=== PATIENT | male | born 1945 | race Caucasian/White ===

== ENCOUNTER 2017-06-07 05:29 | Day surgery (SDC) | payer MEDICARE ==
[2017-05-31 10:28] LABS: ABSOLUTE EOSINOPHILS # (AUTO) 0.2 10^3/uL (0.0-0.6); ABSOLUTE LYMPHOCYTES (AUTO) 2.7 10^3/uL (0.5-4.7); ABSOLUTE MONOCYTES (AUTO) 0.7 10^3/uL (0.1-1.4); ABSOLUTE NEUT (AUTO) 3.7 10^3/uL (1.7-8.2); BASOPHILS % (AUTO) 0.6 % (0-2); EOSINOPHILS % (AUTO) 2.9 % (0-6); HEMOGLOBIN 15.9 g/dL (13.5-17.0); LYMPHOCYTES % (AUTO) 36.2 % (13-45); MEAN CORPUSCULAR HGB CONC 33.9 g/dL (32.0-36.0); MEAN CORPUSCULAR VOLUME 92 fl (80-97); MONOCYTES % (AUTO) 10.2 % (3-13); PLATELET COUNT 318 10^3/uL (150-450); RED BLOOD COUNT 5.14 10^6/uL (4.35-5.55); RED CELL DISTRIBUTION WIDTH 12.8 % (11.5-14.0); SEGMENTED NEUTROPHILS % (AUTO) 50.1 % (42-78); TOTAL CELLS COUNTED % (AUTO) 100 %; WHITE BLOOD COUNT 7.3 10^3/uL (4.0-10.5)
[2017-05-31 10:39] LABS: APPEARANCE,URINE CLEAR; BILIRUBIN,URINE NEGATIVE (NEGATIVE); COLOR,URINE YELLOW; GLUCOSE, URINE NEGATIVE (NEGATIVE); KETONES,URINE NEGATIVE (NEGATIVE); LEUKOCYTE ESTERASE,URINE NEGATIVE (NEGATIVE); NITRITE,URINE NEGATIVE (NEGATIVE); PROTEIN,URINE NEGATIVE (NEGATIVE); URINE SPECIFIC GRAVITY 1.018; UROBILINOGEN,URINE NEGATIVE mg/dL (<2.0)
[2017-05-31 10:49] LABS: ANION GAP 11 (5-19); BLOOD UREA NITROGEN 24 mg/dL (7-20); CALCIUM 9.4 mg/dL (8.4-10.2); CARBON DIOXIDE 28 mmol/L (22-30); CHLORIDE 103 mmol/L (98-107); GLUCOSE 99 mg/dL (75-110); POTASSIUM 4.3 mmol/L (3.6-5.0); SODIUM 141.6 mmol/L (137-145)
--- NOTE | 2017-05-31 11:14 | RADIOLOGY REPORT (SQ) ---
EXAM DESCRIPTION: CHEST PA/LATERAL COMPLETED DATE/TIME: 05/31/2017 10:03 am REASON FOR STUDY: PRE OP COMPARISON: 06/27/2015 NUMBER OF VIEWS: Two view. TECHNIQUE: Frontal and lateral radiographic views of the chest acquired. LIMITATIONS: None. FINDINGS: LUNGS AND PLEURA: No opacities, masses or pneumothorax. No pleural effusion. MEDIASTINUM AND HILAR STRUCTURES: No masses or contour abnormalities. HEART AND VASCULATURE: Heart normal size. No evidence for failure. BONY STRUCTURES: No acute findings. HARDWARE: None. OTHER: No other significant finding. IMPRESSION: NO SIGNIFICANT RADIOGRAPHIC FINDING IN THE CHEST. TECHNICAL DOCUMENTATION: JOB ID: [id number] [employer]- All Rights Reserved
--- NOTE | 2017-06-01 10:36 | EKG REPORT ---
SEVERITY:- NORMAL ECG - SINUS RHYTHM : Confirmed by: Mariaelena Cobos 01-Jun-2017 10:35:07
[~2017-06-07 05:29] MED LIST: CEFAZOLIN 2 GM/D5W RTU 2 GM/50 ML RTUPB IV PRN; LACTATED RINGERS 1000 ML IV PRN
[2017-06-07] MEDS ORDERED: BUPIVACAINE HCL 0.5 % INJ/PF 30 ML SDV ONE (06:44)
[2017-06-07] MEDS ORDERED: LIDOCAINE 1% INJ-PF (10 MG/ML) 30 ML SDV ONE (06:44)
[2017-06-07] MEDS ORDERED: FENTANYL CITRATE INJ/PF 100 MCG/2 ML AMPUL ONE (07:08)
[2017-06-07] MEDS ORDERED: MIDAZOLAM 2 MG/2 ML INJ ONE (07:09)
[2017-06-07] MEDS ORDERED: ONDANSETRON HCL INJ/PF 4 MG/2 ML SDV ONE (07:09)
[2017-06-07] MEDS ORDERED: PROPOFOL INJ 200 MG/20 ML VIAL IV ONE (07:09)
--- NOTE | 2017-06-07 07:34 | Progress Note ---
Provider Note Provider Note: In the preoperative holding area patient noted area along his index finger which is been causing him discomfort since a piece of metal was lodged in this region. He states the pain is worse with palpation. Denies fever chills or sweats. Left index finger: Area of eschar along the radial aspect at the level of the proximal phalanx. No evidence of erythema or drainage. No palpable fluctuance. Tenderness to palpation. No sensory deficits. Assessment: Retained foreign body left index finger Given patient is going under anesthesia the joint decision was made to proceed with concomitant foreign body removal. Risks and benefits were explained to the patient who verbalized understanding consented for the procedure.
[2017-06-07] MEDS ORDERED: MEPERIDINE HCL/PF INJ 25 MG/1 ML DISP.SYRIN IV PRN (07:49)
[2017-06-07] MEDS ORDERED: PROMETHAZINE HCL INJ 25 MG/1 ML VIAL IV PRN (07:49)
[2017-06-07] MEDS ORDERED: MORPHINE SULFATE 10 MG/ML INJ IV PRN (07:49)
[2017-06-07] MEDS ORDERED: DIPHENHYDRAMINE HCL 50 MG/ML VIAL IV PRN (07:49)
[2017-06-07] MEDS ORDERED: FENTANYL CITRATE INJ/PF 100 MCG/2 ML AMPUL IV PRN ×3 (07:49)
[2017-06-07] MEDS ORDERED: ONDANSETRON HCL INJ/PF 4 MG/2 ML SDV IV PRN (08:16)
[2017-06-07] MEDS ORDERED: HYDROCODONE/ACETAMINOPHEN 5-325 MG TABLET PO PRN (08:16)
--- NOTE | 2017-06-07 08:16 | Operative Report ---
Operative Report DATE OF SURGERY: 06/07/17 PREOPERATIVE DIAGNOSIS: Painful Hardware Left Middle Finger. Mass left Index Finger POSTOPERATIVE DIAGNOSIS: Same OPERATION: 1. Removal hardware left middle finger. 2. Excision lesion left index finger SURGEON: OLYA NUNEZ ANESTHESIA: LMAC COMPLICATIONS: None ESTIMATED BLOOD LOSS: Minimal PROCEDURE: Indication for above procedure: 71-year-old male who sustained a open fracture to his left middle finger. He subsequently underwent operative intervention including osteotomy after malunion patient did well postoperatively but after complete healing patient continued to have discomfort secondary to painful hardware at that point we discussed treatment options and the decision was made to proceed with operative intervention. Patient furthermore developed a small lesion along his left index finger secondary to a metal fragments which is causing him discomfort and thus decision was made to proceed with concomitant foreign body removal. Risks and benefits were explained to the patient patient verbalized understanding consented for the procedure. LEFT procedure In Detail: Patient was seen and evaluated in the preoperative holding area. The LEFT upper extremity was initialized and marked. Patient received 2g of Ancef IV for bacterial prophylaxis. Patient was taken back to the operative room where transferred to the operative table. Once they were adequately anesthetized a nonsterile tourniquet was placed on the upper extremity. A surgical team debriefing was performed ensuring all instrumentation was available, the surgical procedure was discussed with possible concerns reviewed. A digital block was performed to the left index and middle finger. utilizing 10 mL 50: 50 mixture of 0.5% Marcaine and 1% lidocaine without epinephrine. The upper extremity was prepped with chlorhexidine and alcohol and draped in a sterile fashion. A timeout was done identifying correct patient, procedure and extremity everyone in attendance agree with this and verbalized no concerns. The extremity was exsanguinated the tourniquet was inflated to 250 mmHg. Patient's previous surgical incision was utilized. Blunt dissection was performed the lateral bands were identified and mobilized. The underlying hardware was then isolated and 7 screws and the plate was removed. Patient had complete fracture healing there is no evidence of fracture instability once the hardware was removed. The wound was then copiously irrigated with normal saline. With the use of C-arm fluoroscopy I attempted to localize foreign body along the radial aspect of the index finger but no foreign body was appreciated. Thus an elliptical incision was made around the lesion which was sharply dissected and removed. Blunt dissection deep to the lesion did not demonstrate evidence of foreign body or abnormality. The wound was copiously irrigated with normal saline. Lesion was sent to pathology. Tourniquet was then deflated. Any peripheral venous bleeding was coagulated with bipolar cautery. Wounds were copiously irrigated with normal saline and closed with interrupted 4-0 nylon suture. Sponge counts, instrument counts, needle counts counts were correct. Patient was then awoken from anesthesia. Transferred from the operating room table to the operating room stretcher. There was no intraoperative complications patient tolerated procedure well stable to PACU. Postoperative plan: Patient will follow-up as scheduled for wound check. They will call with any questions or concerns.
--- NOTE | 2017-06-07 09:47 | RADIOLOGY REPORT (SQ) ---
EXAM DESCRIPTION: FINGER LEFT; NO CHG FLUORO COMPLETED DATE/TIME: 06/07/2017 8:35 am; 06/07/2017 8:34 am REASON FOR STUDY: LEFT FINGER HARDWARE REMOVAL ASST WITH FLUORO IN OR T84.398A [facility] COMPL OF OTH KRYSTIAN NE DEVICES, IMPLANTS AND GRAFTS COMPARISON: Left finger three views 04/14/2016 FLUOROSCOPY TIME: 4 seconds 5 images saved to PACS. TECHNIQUE: Intra-operative images acquired during surgical procedure to evaluate progress. NUMBER OF IMAGES: 5 LIMITATIONS: None. FINDINGS: 5 C-arm images are submitted during hardware removal from the left 3rd (middle) finger mid dle phalanx. IMPRESSION: Intra procedural imaging and fluoro COMMENT: Quality ID [id number]: Final reports for procedures using fluoroscopy that document radiation exp osure indices, or exposure time and number of fluorographic images (if radiation exposure indices are not available) Please consult full operative report of the attending physician for description of the procedure. TECHNICAL DOCUMENTATION: JOB ID: [id number] [employer]- All Rights Reserved
--- NOTE | 2017-06-07 09:47 | RADIOLOGY REPORT (SQ) ---
EXAM DESCRIPTION: FINGER LEFT; NO CHG FLUORO COMPLETED DATE/TIME: 06/07/2017 8:35 am; 06/07/2017 8:34 am REASON FOR STUDY: LEFT FINGER HARDWARE REMOVAL ASST WITH FLUORO IN OR T84.398A [facility] COMPL OF OTH KRYSTIAN NE DEVICES, IMPLANTS AND GRAFTS COMPARISON: Left finger three views 04/14/2016 FLUOROSCOPY TIME: 4 seconds 5 images saved to PACS. TECHNIQUE: Intra-operative images acquired during surgical procedure to evaluate progress. NUMBER OF IMAGES: 5 LIMITATIONS: None. FINDINGS: 5 C-arm images are submitted during hardware removal from the left 3rd (middle) finger mid dle phalanx. IMPRESSION: Intra procedural imaging and fluoro COMMENT: Quality ID [id number]: Final reports for procedures using fluoroscopy that document radiation exp osure indices, or exposure time and number of fluorographic images (if radiation exposure indices are not available) Please consult full operative report of the attending physician for description of the procedure. TECHNICAL DOCUMENTATION: JOB ID: [id number] [employer]- All Rights Reserved
[2017-06-07 10:04] VITALS: BP 131/74
--- NOTE | 2017-06-10 14:54 | PDOC DISCHARGE SUMMARY ---
Discharge Summary (SDC) - Discharge Final Diagnosis: Painful hardware left middle finger Date of Surgery: 06/07/17 Discharge Date: 06/07/17 Condition: Good Treatment or Instructions: Schedule Follow Up w/ Dr. Landon Flores @ [facility] to be seen in 10-14 days or as scheduled [place]: [place]: [place]: Prescriptions: Hydrocodone/Acetaminophen [Corinth 5-325 mg Tablet] 1 tab PO Q8 PRN #10 tablet PRN Reason: Referrals: LANDON DAMIAN MD [Primary Care Provider] - Respiratory Treatments at Home: Deep Breathing/Coughing Discharge Activity: No Lifting Over 10 Pounds, No Lifting/Push/Pulling Report the Following to Your Physician Immediately: Fever over 101 Degrees, Unusual Bleeding, Redness, Swelling, Warmth, Increased Soreness
== END 2017-06-07 09:50 | disposition home or self-care (01) ==
LOC: OROUT 05:29
PROVIDERS: ATTEND Orthopaedic Surgery
PROC: 0PPV04Z Removal of Internal Fixation Device from Left Finger Phalanx, Open Approach (ICD-10-PCS; 2017-06-07)
PROC: 0HBGXZZ Excision of Left Hand Skin, External Approach (ICD-10-PCS; principal; 2017-06-07 07:30)
DX: Z47.2 Encounter for removal of internal fixation device (principal); T84.84XA Pain due to internal orthopedic prosthetic devices, implants and grafts, initial encounter; Y83.8 Other surgical procedures as the cause of abnormal reaction of the patient, or of later complication, without mention of misadventure at the time of the procedure; D23.62 Other benign neoplasm of skin of left upper limb, including shoulder; L85.9 Epidermal thickening, unspecified; I10 Essential (primary) hypertension; Z79.1 Long term (current) use of non-steroidal anti-inflammatories (NSAID); Z79.899 Other long term (current) drug therapy
CPT/HCPCS: 93005; 36415 ×2; 84132; 85025; 80048; 81001; 88305 ×2; 71046; 73140; 93010; 11420; 20680; J2250; J3010; J3490; J2405; J2704; J0690; 01830

== ENCOUNTER 2017-06-09 11:06 | Observation (INO) | payer MEDICARE ==
--- NOTE | 2017-06-09 11:53 | RADIOLOGY REPORT (SQ) ---
EXAM DESCRIPTION: CT HEAD WITHOUT COMPLETED DATE/TIME: 06/09/2017 11:27 am REASON FOR STUDY: confusion COMPARISON: None. TECHNIQUE: Axial images acquired through the brain without intravenous contrast. Images reviewed wi th bone, brain and subdural windows. Images stored on PACS. All CT scanners at this facility use dose modulation, iterative reconstruction, and/or weight based d osing when appropriate to reduce radiation dose to as low as reasonably achievable (ALARA). [facility]: Dose Right [facility]: CareDose [facility]: Dose Right [facility]: Teradose 4D [facility]: [employer] RADIATION DOSE: CT Rad equipment meets quality standard of care and radiation dose reduction techniq ues were employed. CTDIvol: 64.6 mGy. DLP: 1163 mGy-cm. mGy. LIMITATIONS: None. FINDINGS: VENTRICLES: Normal size and contour. CEREBRUM: No masses. No hemorrhage. No midline shift. No evidence for acute infarction. Normal gra y/white matter differentiation. No areas of low density in the white matter. CEREBELLUM: No masses. No hemorrhage. No alteration of density. No evidence for acute infarction. EXTRAAXIAL SPACES: No fluid collections. No masses. ORBITS AND GLOBE: No intra- or extraconal masses. Normal contour of globe without masses. CALVARIUM: No fracture. PARANASAL SINUSES: No fluid or mucosal thickening. SOFT TISSUES: No mass or hematoma. OTHER: No other significant finding. IMPRESSION: NORMAL BRAIN CT WITHOUT CONTRAST. EVIDENCE OF ACUTE STROKE: NO. COMMENT: Quality ID # [id number]: Final reports with documentation of one or more dose reduction techniques (e.g., Automated exposure control, adjustment of the mA and/or kV according to patient size, use of iterative reconstruction technique) TECHNICAL DOCUMENTATION: JOB ID: [id number] [employer]- All Rights Reserved
--- NOTE | 2017-06-09 12:16 | ER Document Report ---
ED Medical Screen (RME) - General Chief Complaint: Altered Mental Status Stated Complaint: MEMORY LOSS TRAVEL OUTSIDE OF THE [place] IN LAST 30 DAYS: Yes COUNTRY TRAVELED TO/FROM: [place] [facility] Notes: 06/09/17 12:11 A 1-year-old male in [facility] presents today with complaints of new onset altered mental status that started approximately 4 hours ago. Patient does not recall driving to work. Patient was at his doctor's his is concerned about disorientation. PCP advised patient to come to the emergency room for further evaluation of hypertension. On evaluation patient is unable to tell me the year , day, month, president or where he is at this moment. Denies any slurred speech or numbness or tingling down bilateral upper and lower extremities. Denies any head trauma. Denies any fevers or chills. Denies any rashes. denies any trauma. He states that patient is usually neurologically intact with his orientation and alertness. 06/09/17 12:12 - Related Data Allergies/Adverse Reactions: rituximab [From Rituxan] Adverse Reaction (Verified 06/09/17 11:14) Home Medications: Current Home Medications Finasteride [Proscar 5 mg Tablet] 5 mg PO DAILY 06/09/17 [History] Ibuprofen [Motrin 800 mg Tablet] 800 mg PO DAILY 06/09/17 [History] Pravastatin Sodium [Pravachol] 20 mg PO QHS 06/09/17 [History] Tamsulosin HCl [Flomax 0.4 mg Cap.sr] 0.8 mg PO DAILY 06/09/17 [History] Triamterene/Hydrochlorothiazid [Triamterene-Hctz 37.5-25 mg Cp] 1 cap PO DAILY 06/09/17 [History] Past Medical History - Social History Frequency of alcohol use: None Drug Abuse: None - Past Medical History Cardiac Medical History: Reports: Hx Hypertension Denies: Hx Coronary Artery Disease, Hx Heart Attack Pulmonary Medical History: Denies: Hx Asthma, Hx Bronchitis, Hx COPD, Hx Pneumonia, Hx Tuberculosis Neurological Medical History: Denies: Hx Cerebrovascular Accident, Hx Seizures Renal/ Medical History: Reports: Hx Kidney Stones. Denies: Hx Peritoneal Dialysis Musculoskeltal Medical History: Denies Hx Arthritis Past Surgical History: Reports: Hx Abdominal Surgery - Spleenectomy, hernia, Hx Orthopedic Surgery - L rotator cuff, Hx Thyroid Surgery - Biopsy, Hx Tonsillectomy - Immunizations Hx Diphtheria, Pertussis, Tetanus Vaccination: Yes History of Influenza Vaccine for 02/2017 - 07/2017 Season: Yes Influenza Administration Date for 02/2017 - 07/2017 Season: 02/27/17 Physical Exam - Vital signs Vitals: Temp Pulse Resp BP Pulse Ox 98.9 F 77 16 180/92 H 99 06/09/17 11:11 06/09/17 11:11 06/09/17 11:11 06/09/17 11:11 06/09/17 11:11 - Notes Notes: PHYSICAL EXAMINATION: GENERAL: Well-appearing, well-nourished and in no acute distress. HEAD: Atraumatic, normocephalic. EYES: Pupils equal round and reactive to light, extraocular movements intact, sclera anicteric, conjunctiva are normal. ENT: Nares patent, oropharynx clear without exudates. Moist mucous membranes. NECK: Normal range of motion, supple without lymphadenopathy LUNGS: Breath sounds clear to auscultation bilaterally and equal. No wheezes rales or rhonchi. HEART: Regular rate and rhythm without murmurs ABDOMEN: Soft, nontender, nondistended abdomen. No guarding, no rebound. No masses appreciated. Musculoskeletal: Normal range of motion, no pitting or edema. No cyanosis. NEUROLOGICAL: Normal speech, normal gait. Pt not oriented x 3. can repeat sentences. Normal sensory, motor exams. PERRLA, EOMI. Full motor and sensory function throughout. [employer] + 2 equal bilaterally in BUE. Tongue midline. No pronator drift. No ataxia. Neck with APROM. Raises eyebrows. Strength 5/5 BUE, BLE. Raises eyebrows. Speaks in full sentences. No weakness on one side. Romberg gait steady able to walk straight line. Able to recall 5 objects. No dysmetria bilaterally in BUE PSYCH: Normal mood, normal affect. SKIN: Warm, Dry, normal turgor, no rashes or lesions noted. Course - Re-evaluation Re-evalutation: 06/09/17 12:47 CT neative for any acute findings. - Vital Signs Vital signs: Temp Pulse Resp BP Pulse Ox 98.5 F 78 18 117/70 95 06/10/17 08:49 06/10/17 08:49 06/10/17 08:49 06/10/17 08:49 06/10/17 08:49 - Laboratory Result Diagrams: 06/10/17 07:20 06/10/17 07:20 Laboratory results interpreted by me: 06/09/17 06/09/17 06/09/17 12:35 12:35 12:35 Creatine Kinase 282 H CK-MB (CK-2) 6.79 H Ur Leukocyte Esterase TRACE H Doctor's Discharge - Discharge Clinical Impression: Memory loss Condition: Good Disposition: ADMITTED INPATIENT
[2017-06-09 12:49] LABS: ABSOLUTE BASOPHILS # (AUTO) 0.1 10^3/uL (0.0-0.2); ABSOLUTE EOSINOPHILS # (AUTO) 0.2 10^3/uL (0.0-0.6); ABSOLUTE LYMPHOCYTES (AUTO) 3.6 10^3/uL (0.5-4.7); ABSOLUTE MONOCYTES (AUTO) 0.9 10^3/uL (0.1-1.4); ABSOLUTE NEUT (AUTO) 5.4 10^3/uL (1.7-8.2); BASOPHILS % (AUTO) 0.6 % (0-2); EOSINOPHILS % (AUTO) 2.1 % (0-6); HEMATOCRIT 47.5 % (37.9-51.0); HEMOGLOBIN 16.4 g/dL (13.5-17.0); LYMPHOCYTES % (AUTO) 35.5 % (13-45); MEAN CORPUSCULAR HEMOGLOBIN 31.2 pg (27.0-33.4); MEAN CORPUSCULAR HGB CONC 34.4 g/dL (32.0-36.0); MEAN CORPUSCULAR VOLUME 91 fl (80-97); MONOCYTES % (AUTO) 8.6 % (3-13); PLATELET COUNT 332 10^3/uL (150-450); RED BLOOD COUNT 5.25 10^6/uL (4.35-5.55); RED CELL DISTRIBUTION WIDTH 12.7 % (11.5-14.0); SEGMENTED NEUTROPHILS % (AUTO) 53.2 % (42-78); TOTAL CELLS COUNTED % (AUTO) 100 %
[2017-06-09 12:56] LABS: INTERNATIONAL RATION (INR) 0.87; PROTHROMBIN TIME 12.5 SEC (11.4-15.4)
[2017-06-09 12:57] LABS: PARTIAL THROMBOPLASTIN TIME 28.2 SEC (23.5-35.8)
[2017-06-09 12:59] LABS: APPEARANCE,URINE CLEAR; BILIRUBIN,URINE NEGATIVE (NEGATIVE); COLOR,URINE STRAW; GLUCOSE, URINE NEGATIVE (NEGATIVE); KETONES,URINE NEGATIVE (NEGATIVE); LEUKOCYTE ESTERASE,URINE TRACE (NEGATIVE); NITRITE,URINE NEGATIVE (NEGATIVE); PROTEIN,URINE NEGATIVE (NEGATIVE); URINE SPECIFIC GRAVITY 1.004; UROBILINOGEN,URINE NEGATIVE mg/dL (<2.0)
--- NOTE | 2017-06-09 13:13 | ER Document Report ---
ED General - General Chief Complaint: Altered Mental Status Stated Complaint: MEMORY LOSS Time Seen by Provider: 06/09/17 12:45 Notes: 71-year-old male past medical history hypertension hypercholesterolemia here with family who states that as of early this morning, he has had complete short- term memory loss. He has been asking questions over and over again. He has not been able to remember anything over the past few days. He has never had this problem in the past. His family states he has not had any slurred speech numbness tingling weakness pain nausea vomiting diarrhea headache vision change and he still currently denies any symptoms. He denies any prior history of stroke. TRAVEL OUTSIDE OF THE [place] IN LAST 30 DAYS: Yes COUNTRY TRAVELED TO/FROM: [place] - Related Data Allergies/Adverse Reactions: rituximab [From Rituxan] Adverse Reaction (Verified 06/09/17 11:14) Past Medical History - Social History Smoking Status: Never Smoker Frequency of alcohol use: None Drug Abuse: None Family History: Reviewed & Not Pertinent Patient has suicidal ideation: No Patient has homicidal ideation: No - Past Medical History Cardiac Medical History: Reports: Hx Hypertension Denies: Hx Coronary Artery Disease, Hx Heart Attack Pulmonary Medical History: Denies: Hx Asthma, Hx Bronchitis, Hx COPD, Hx Pneumonia, Hx Tuberculosis Neurological Medical History: Denies: Hx Cerebrovascular Accident, Hx Seizures Renal/ Medical History: Reports: Hx Kidney Stones. Denies: Hx Peritoneal Dialysis Musculoskeltal Medical History: Denies Hx Arthritis Past Surgical History: Reports: Hx Abdominal Surgery - Spleenectomy, hernia, Hx Orthopedic Surgery - L rotator cuff, Hx Thyroid Surgery - Biopsy, Hx Tonsillectomy - Immunizations Hx Diphtheria, Pertussis, Tetanus Vaccination: Yes Hx Pneumococcal Vaccination: 02/27/17 Review of Systems - Review of Systems Notes: See history of present illness for pertinent positive review of systems; otherwise all review of systems have been reviewed and are negative Physical Exam - Vital signs Vitals: Temp Pulse Resp BP Pulse Ox 98.9 F 77 16 180/92 H 99 06/09/17 11:11 06/09/17 11:11 06/09/17 11:11 06/09/17 11:11 06/09/17 11:11 - Notes Notes: PHYSICAL EXAMINATION: GENERAL: Well-appearing and in no acute distress. HEAD: Atraumatic, normocephalic. EYES: Pupils equal round and reactive to light, extraocular movements intact, sclera anicteric, conjunctiva are normal. ENT: nares patent, oropharynx clear without exudates. Moist mucous membranes. NECK: Normal range of motion, supple without lymphadenopathy LUNGS: CTAB and equal. No wheezes rales or rhonchi. HEART: Regular rate and rhythm without murmurs ABDOMEN: Soft, no tenderness. No guarding, no rebound EXTREMITIES: Normal range of motion, no pitting edema. No cyanosis. NEUROLOGICAL: Cranial nerves grossly intact. Normal sensory/motor exams. No pronator drift. Cannot remember words "[employer]" 5 minutes later PSYCH: Normal mood, normal affect. SKIN: Warm, Dry, normal turgor, no rashes or lesions noted Course - Re-evaluation Re-evalutation: 06/09/17 13:18 MEDICAL DECISION MAKING: Concern for transient global amnesia versus CVA/TIA versus UTI Will obtain workup and go from there Patient and family understands and agrees to the plan of care EKG my interpretation rate nl rhythm reg No appreciable ST elevation or depression Normal RI QRS QT No sig change from prior EKG from 06/09/17 14:[address] Chiu who has accepted the pt He will come down to see the patient and family I have spoken with patient and family about staying here versus transfer They prefer to stay here and acknowledge there is no neurologist today - Vital Signs Vital signs: Temp Pulse Resp BP Pulse Ox 98.9 F 71 13 154/90 H 97 06/09/17 11:11 06/09/17 12:00 06/09/17 12:00 06/09/17 12:00 06/09/17 12:00 - Laboratory Result Diagrams: 06/09/17 12:35 06/09/17 12:35 Laboratory results interpreted by me: 06/09/17 06/09/17 06/09/17 12:35 12:35 12:35 Creatine Kinase 282 H CK-MB (CK-2) 6.79 H Ur Leukocyte Esterase TRACE H Discharge - Discharge Clinical Impression: Memory loss Condition: Good Disposition: ADMITTED INPATIENT Admitting Provider: Richiist - Braydon Chiu Unit Admitted: Telemetry Referrals: LAURA YU MD [Primary Care Provider] - Follow up as needed
[2017-06-09 13:16] LABS: ALANINE AMINOTRANSFERASE 44 U/L (21-72); ALBUMIN 4.2 g/dL (3.5-5.0); ALKALINE PHOSPHATASE 77 U/L (38-126); ANION GAP 11 (5-19); ASPARTATE AMINO TRANSFERASE 41 U/L (17-59); BILIRUBIN,DIRECT 0.2 mg/dL (0.0-0.4); BILIRUBIN,TOTAL 0.7 mg/dL (0.2-1.3); BLOOD UREA NITROGEN 19 mg/dL (7-20); C-REACTIVE PROTEIN 6.3 mg/L (<10.0); CALCIUM 10.2 mg/dL (8.4-10.2); CARBON DIOXIDE 25 mmol/L (22-30); CHLORIDE 106 mmol/L (98-107); CREATINE KINASE 282 U/L (55-170); GLUCOSE 93 mg/dL (75-110); POTASSIUM 4.6 mmol/L (3.6-5.0); TOTAL PROTEIN 7.2 g/dL (6.3-8.2)
[2017-06-09 13:26] LABS: CREATINE KINASE MB 6.79 ng/mL (<4.55); TROPONIN I 0.012 ng/mL
--- NOTE | 2017-06-09 13:46 | RADIOLOGY REPORT (SQ) ---
EXAM DESCRIPTION: CHEST SINGLE VIEW COMPLETED DATE/TIME: 06/09/2017 1:38 pm REASON FOR STUDY: AMS COMPARISON: 05/31/2017. EXAM PARAMETERS: NUMBER OF VIEWS: One view. TECHNIQUE: Single frontal radiographic view of the chest acquired. RADIATION DOSE: NA LIMITATIONS: None. FINDINGS: LUNGS AND PLEURA: No opacities, masses or pneumothorax. No pleural effusion. MEDIASTINUM AND HILAR STRUCTURES: No masses. Contour normal. HEART AND VASCULAR STRUCTURES: Heart normal in size. Normal vasculature. BONES: No acute findings. HARDWARE: None in the chest. OTHER: No other significant finding. IMPRESSION: NO ACUTE RADIOGRAPHIC FINDING IN THE CHEST. TECHNICAL DOCUMENTATION: JOB ID: [id number] [employer]- All Rights Reserved
[2017-06-09] MEDS ORDERED: ACETAMINOPHEN 325 MG TABLET PO PRN (16:19)
[2017-06-09] MEDS ORDERED: ONDANSETRON 4 MG TAB.RAPDIS PO PRN (16:19)
--- NOTE | 2017-06-09 17:10 | PDOC H&P ---
History of Present Illness Admission Date/PCP: 06/09/17 15:20 [facility] Patient complains of: amnesia, repeated speech History of Present Illness: STEPHANIE SAINI SR is a 71 year old male with history of HTN and HLD who was in good health until this afternoon. Patient reportedly developed acute onset short -term memory loss. He began repetitive speech and asking same questions repeatedly. States that he can not remember most events over the last 24-36 hours. States that "I can not remember going to work today". Has no other focal neurological deficits, including slurred speech, numbness, focal weakness, vision changes, SHEN, [place]. States that this has never happened before. No history of DM, CVA, or cancer. He does have HTN however is compliant with his medications. He has a "strong family history of griffith. At time of my evaluation , family feels that he is marginally improving however not at baseline. Denies fevers, chills, recent illnesses, CP, abdominal pain. Currently is working and very active. Past Medical History Medical History: Other - H Cardiac Medical History: Reports: DVT - Previously on anticoagulation for provoked DVT * 2 episodes, Hyperlipidema, Hypertension Denies: Coronary Artery Disease, Myocardial Infarction Pulmonary Medical History: Denies: Asthma, Bronchitis, Chronic Obstructive Pulmonary Disease (COPD), Pneumonia, Tuberculosis Neurological Medical History: Denies: Hemorrhagic CVA, Ischemic CVA, Seizures Endocrine Medical History: Denies: Diabetes Mellitus Type 1, Diabetes Mellitus Type 2 Musculoskeltal Medical History: Denies: Arthritis Hematology: Reports: Anemia - HX Past Surgical History Past Surgical History: Reports: Orthopedic Surgery - L rotator cuff, Tonsillectomy Social History Information Source: Relative - and daughter at bedside Lives with: Spouse/Significant other Smoking Status: Never Smoker Frequency of Alcohol Use: None Hx Recreational Drug Use: No Drugs: None Hx Prescription Drug Abuse: No Family History Family History: Reviewed & Not Pertinent Family History: Father and paternal uncle with history of hemorrhagic CVA Parental Family History Reviewed: Yes Children Family History Reviewed: No Sibling(s) Family History Reviewed.: No Medication/Allergy Home Medications: Pravastatin Sodium [Pravachol] 20 mg PO QHS 06/09/17 Triamterene/Hydrochlorothiazid [Triamterene-Hctz 37.5-25 mg Cp] 1 cap PO DAILY 06/09/17 Allergies/Adverse Reactions: rituximab [From Rituxan] Adverse Reaction (Verified 06/09/17 11:14) Review of Systems All systems: reviewed and no additional remarkable complaints except as stated - per HPI/ Detailed 14 point ROS reviewed with patient and otherwise negative Physical Exam Vital Signs: Temp Pulse Resp BP Pulse Ox 98.9 F 72 19 122/80 94 06/09/17 11:11 06/09/17 15:00 06/09/17 16:01 06/09/17 16:00 06/09/17 16:01 General appearance: PRESENT: no acute distress, hard of hearing, well-developed , well-nourished Head exam: PRESENT: atraumatic, normocephalic Eye exam: PRESENT: EOMI, PERRLA. ABSENT: nystagmus, scleral icterus Mouth exam: PRESENT: moist Teeth exam: ABSENT: poor dentation Neck exam: ABSENT: carotid bruit, JVD Respiratory exam: PRESENT: clear to auscultation jennifer, unlabored Cardiovascular exam: PRESENT: RRR. ABSENT: systolic murmur Vascular exam: PRESENT: normal capillary refill. ABSENT: pallor Extremities exam: PRESENT: full ROM. ABSENT: pedal edema Musculoskeletal exam: PRESENT: full ROM Neurological exam: PRESENT: alert, oriented to person, oriented to situation, CN II-XII grossly intact - Speech fluent however repeats same questions.. ABSENT: oriented to time Results Laboratory Results: Labs- Entire Visit 06/09/17 06/09/17 06/09/17 12:34 12:35 12:35 WBC 10.0 RBC 5.25 Hgb 16.4 Hct 47.5 MCV 91 MCH 31.2 MCHC 34.4 RDW 12.7 Plt Count 332 Seg Neutrophils % 53.2 Lymphocytes % 35.5 Monocytes % 8.6 Eosinophils % 2.1 Basophils % 0.6 Absolute Neutrophils 5.4 Absolute Lymphocytes 3.6 Absolute Monocytes 0.9 Absolute Eosinophils 0.2 Absolute Basophils 0.1 PT INR APTT Sodium 142.0 Potassium 4.6 Chloride 106 Carbon Dioxide 25 Anion Gap 11 BUN 19 Creatinine 1.01 Est GFR ( Amer) > 60 Est GFR (Non-Af Amer) > 60 Glucose 93 POC Glucose 94 Calcium 10.2 Total Bilirubin 0.7 Direct Bilirubin 0.2 Neonat Total Bilirubin Not Reportable Neonat Direct Bilirubin Not Reportable Neonat Indirect Bili Not Reportable AST 41 ALT 44 Alkaline Phosphatase 77 Creatine Kinase 282 H CK-MB (CK-2) Troponin I C-Reactive Protein 6.3 NT-Pro-B Natriuret Pep Total Protein 7.2 Albumin 4.2 Urine Color Urine Appearance Urine pH Ur Specific [place] Urine Protein Urine Glucose (UA) Urine Ketones Urine Blood Urine Nitrite Urine Bilirubin Urine Urobilinogen Ur Leukocyte Esterase Urine WBC (Auto) Urine Bacteria (Auto) Squamous Epi Cells Auto Urine Mucus (Auto) Urine Ascorbic Acid 06/09/17 06/09/17 06/09/17 12:35 12:35 12:35 WBC RBC Hgb Hct MCV MCH MCHC RDW Plt Count Seg Neutrophils % Lymphocytes % Monocytes % Eosinophils % Basophils % Absolute Neutrophils Absolute Lymphocytes Absolute Monocytes Absolute Eosinophils Absolute Basophils PT 12.5 INR 0.87 APTT 28.2 Sodium Potassium Chloride Carbon Dioxide Anion Gap BUN Creatinine Est GFR ( Amer) Est GFR (Non-Af Amer) Glucose POC Glucose Calcium Total Bilirubin Direct Bilirubin Neonat Total Bilirubin Neonat Direct Bilirubin Neonat Indirect Bili AST ALT Alkaline Phosphatase Creatine Kinase CK-MB (CK-2) 6.79 H Troponin I 0.012 C-Reactive Protein NT-Pro-B Natriuret Pep 151 Total Protein Albumin Urine Color STRAW Urine Appearance CLEAR Urine pH 8.0 Ur Specific [place] 1.004 Urine Protein NEGATIVE Urine Glucose (UA) NEGATIVE Urine Ketones NEGATIVE Urine Blood NEGATIVE Urine Nitrite NEGATIVE Urine Bilirubin NEGATIVE Urine Urobilinogen NEGATIVE Ur Leukocyte Esterase TRACE H Urine WBC (Auto) 0 Urine Bacteria (Auto) TRACE Squamous Epi Cells Auto <1 Urine Mucus (Auto) RARE Urine Ascorbic Acid NEGATIVE Impressions: Head CT 06/09/17 11:21 IMPRESSION: NORMAL BRAIN CT WITHOUT CONTRAST. EVIDENCE OF ACUTE STROKE: NO. Chest X-Ray 06/09/17 12:10 IMPRESSION: NO ACUTE RADIOGRAPHIC FINDING IN THE CHEST. Assessment & Plan - Diagnosis (1) Memory loss Is this a current diagnosis for this admission?: Yes Plan: Relatively healthy male with acute onset of memory loss. Differential includes transient global amnesia vs TIA/CVA. Less likely to be from migraine, metabolic , or infection. ABCD2 risk score: 4 (if this is TIA). - Neuro exam: non focal other than memory issue - CTH in ED: Negative for acute CVA - Labs: unremarkable - Admit to tele-floor, place on court monitor, neuro checks, vitals q4 hours, stroke assessment, bedside eval for swallowing - Work up: - Will obtain Lipids, HgA1c, TSh - Ordered MRI Brain, carotid dopplers, TTE - Started Atorvastatin 80mg, ASA 81mg, Thiamine 100mg PO, Multivitamin - Consulted PT/OT - Long discussion with patient and family regarding the lack of neurological service at [place]. As we are unsure when symptoms occurred, he is outside the window for TPA. Furthermore, transfer to tertiary center will be difficult given long waitlist, which would ultimately delay work up. However gave options to transfer patient vs. keep at [facility] for work up. Family decided to keep patient at [place]. - Pending work up, will discuss with Neurology at [facility] or [place] for assistance if required - Low threshold for transfer if acute decompensation - Anticipate full neuro recovery within 24 hours if this is TGA (2) HTN (hypertension) Qualifiers: Hypertension type: essential hypertension Qualified Code(s): I10 - Essential (primary) hypertension Is this a current diagnosis for this admission?: Yes Plan: Continuing home Triamterene/HCTZ (3) HLD (hyperlipidemia) Is this a current diagnosis for this admission?: Yes Plan: Discontinued home pravastatin, started Atorvastatin 80mg daily - Time Time Spent: 50 to 70 Minutes Critical Time spent with patient: 15-24 minutes Medications reviewed and adjusted accordingly: Yes Anticipated discharge: Home, Home with Homehealth Within: within 48 hours
[2017-06-09] MEDS ORDERED: MULTIVITAMIN TABLET PO ONE (17:30)
[2017-06-09] MEDS ORDERED: ASPIRIN 81 MG TABLET, ENT COATED PO ONE (17:30)
[2017-06-09] MEDS ORDERED: THIAMINE HCL 100 MG TABLET PO ONE (17:30)
--- NOTE | 2017-06-09 18:37 | RADIOLOGY REPORT (SQ) ---
EXAM DESCRIPTION: MRI HEAD COMBO COMPLETED DATE/TIME: 06/09/2017 6:23 pm REASON FOR STUDY: transient global amnesia vs TIA/CVA workup COMPARISON: Brain CT scan dated 06/09/2017 TECHNIQUE: Multiplanar imaging includes noncontrasted T1, T2, FLAIR, diffusion with ADC map and post gadolinium contrast T1 sequences. Images stored on PACS. CONTRAST TYPE AND DOSE: 20 mL MultiHance RENAL FUNCTION: GFR > 60. LIMITATIONS: None. FINDINGS: ANATOMY: No anomalies. Normal vascular flow voids. Pituitary fossa normal. CSF SPACES: Normal in size and contour. No hemorrhage. CEREBRUM: Sulci and gyri normal in size and contour. Normal white matter signal on FLAIR imaging. No evidence of hemorrhage, mass, or extraaxial fluid collection. No abnormal enhancement post contrast. POSTERIOR FOSSA: No signal alteration. No hemorrhage. No edema, masses, or mass effect. Internal lois tory canals, cerebellopontine angles, mastoids normal. No enhancing lesions. No abnormal enhancement post contrast. DIFFUSION IMAGING: Negative for acute or subacute infarction. ORBITS: No masses. Globes normal. PARANASAL SINUSES: No fluid levels. Mucosa normal. OTHER: No other significant finding. IMPRESSION: NORMAL MRI OF THE BRAIN WITHOUT AND WITH INTRAVENOUS GADOLINIUM CONTRAST. EVIDENCE OF ACUTE STROKE: NO. TECHNICAL DOCUMENTATION: JOB ID: [id number] [employer]- All Rights Reserved
--- NOTE | 2017-06-09 19:06 | EKG REPORT ---
SEVERITY:- NORMAL ECG - SINUS RHYTHM : Confirmed by: Abdulkadir Hoff MD 09-Jun-2017 19:06:24
[2017-06-09] MEDS: ATORVASTATIN CALCIUM 80 MG TABLET PO SCH ×2 (22:33→22:40)
[2017-06-10 08:06] LABS: HEMATOCRIT 45.2 % (37.9-51.0); HEMOGLOBIN 15.7 g/dL (13.5-17.0); MEAN CORPUSCULAR HEMOGLOBIN 31.3 pg (27.0-33.4); MEAN CORPUSCULAR HGB CONC 34.6 g/dL (32.0-36.0); MEAN CORPUSCULAR VOLUME 91 fl (80-97); PLATELET COUNT 308 10^3/uL (150-450); RED BLOOD COUNT 4.99 10^6/uL (4.35-5.55); WHITE BLOOD COUNT 8.4 10^3/uL (4.0-10.5)
[2017-06-10 08:19] LABS: ANION GAP 8 (5-19); BLOOD UREA NITROGEN 22 mg/dL (7-20); CALCIUM 9.6 mg/dL (8.4-10.2); CARBON DIOXIDE 27 mmol/L (22-30); CHLORIDE 105 mmol/L (98-107); CHOLESTEROL 187.66 mg/dL (0-200); GLUCOSE 108 mg/dL (75-110); POTASSIUM 4.5 mmol/L (3.6-5.0); SODIUM 139.8 mmol/L (137-145); TRIGLYCERIDES 181 mg/dL (<150)
[2017-06-10 08:30] LABS: DIRECT LDL 100 mg/dL (<100)
[2017-06-10 08:32] LABS: VLDL CHOLESTEROL 36.2 mg/dL (10-31)
[2017-06-10] MEDS ORDERED: THIAMINE HCL 100 MG TABLET PO SCH (10:00)
[2017-06-10] MEDS ORDERED: ASPIRIN 81 MG TABLET, ENT COATED PO SCH (10:00)
[2017-06-10] MEDS ORDERED: ATORVASTATIN CALCIUM 80 MG TABLET PO SCH (10:00)
[2017-06-10] MEDS ORDERED: (PENDING PHARMACY ID) (Triamterene/Hydrochlorothiazid [Triamterene-Hctz 37.5-25 Mg Cp] 1 C PO SCH (10:00)
[2017-06-10] MEDS ORDERED: TRIAMTERENE/HYDROCHLOROTHIAZIDE 37.5-25 MG TABLET PO SCH (10:00)
[2017-06-10] MEDS ORDERED: MULTIVITAMIN TABLET PO SCH (10:00)
--- NOTE | 2017-06-10 15:30 | RADIOLOGY REPORT (SQ) ---
EXAM DESCRIPTION: CAROTID DOPPLER COMPLETED DATE/TIME: 06/10/2017 2:21 pm REASON FOR STUDY: TIA/CVA work up COMPARISON: MRI brain 06/09/2017 CT brain 06/09/2017 TECHNIQUE: Grayscale ultrasound, Doppler velocity and spectra, and color Doppler images acquired of the extra-cranial carotid and vertebral arteries. Images stored on PACS. LIMITATIONS: None. FINDINGS: RIGHT CAROTID CCA Velocities: Within normal limits. ICA Velocities Peak systolic 0.95 m/s. End diastolic 0.26 m/s. Proximal ICA/CCA peak systolic ratio 1.1. Spectra normal. No significant plaque. LEFT CAROTID CCA Velocities: Within normal limits. ICA Velocities Peak systolic 0.66 m/s. End diastolic 0.23 m/s. Proximal ICA/CCA peak systolic ratio 1.0. Spectra normal. No significant plaque. VERTEBRAL ARTERIES: Antegrade flow. Normal waveforms. SUBCLAVIAN ARTERIES: Not evaluated OTHER: No other significant finding. IMPRESSION: NO HEMODYNAMICALLY SIGNIFICANT STENOSIS. COMMENT: Quality ID #[id number]: Velocity criteria are extrapolated from the diameter data as defined by t he Society of Radiologists in Ultrasound Consensus Conference. Radiology 2003: 229; 340-346. TECHNICAL DOCUMENTATION: JOB ID: [id number] [employer]- All Rights Reserved
[2017-06-10 17:13] VITALS: BP 118/68
--- NOTE | 2017-06-10 17:45 | XCELERA REPORT ---
[address] [address] Transthoracic Echocardiogram Report Name: STEPHANIE SAINI SR Age: 71 yrs Gender: Male : 1945 Patient Status: Inpatient Patient Location: [address] [place] [address] Study Date: 06/10/2017 10:42 AM Height: 74 in Weight: 237 lb BSA: 2.3 m2 Procedure: A complete two-dimensional transthoracic echocardiogram was performed (2D, M-mode, spectral and color flow Doppler). The study was technically adequate with some images being suboptimal in quality. Reason For Study: TIA/CVA work up Ordering Physician: KENNETH SAHA Performed By: Haydee Xiao Interpretation Summary The left ventricular ejection fraction is normal. Doppler measurements suggest pseudonormalized left ventricular relaxation, which is associated with grade II/IV or mild to moderate diastolic dysfunction There is borderline concentric left ventricular hypertrophy. The left ventricle is grossly normal size. Regional wall motion abnormalities cannot be excluded due to limited visualization. The right ventricle is mildly dilated. The right ventricular systolic function is normal. Borderline right atrial enlargement. Borderline left atrial enlargement. There is no mitral valve stenosis. There is a trace amount of mitral regurgitation No aortic regurgitation is present. There is no aortic valve stenosis There is a trace amount of tricuspid regurgitation Tricuspid regurgitation jet envelope not well defined to measure RV systolic pressure accurately. The aortic root is not well visualized but is probably normal size. The inferior vena cava appeared normal and decreased > 50% with respiration (RAP 5-10 mmHg) There is no pericardial effusion. No definite cardiac source of CVA/TIA noted on this particular trans- thoracic study. Consider JULIO CESAR if clinically indicated. May consider mobile cardiac telemetry monitoring (MCT) for ruling out transient AFIB. MMode/2D Measurements & Calculations RVDd: 3.6 cm LVIDd: 4.8 cm FS: 41.7 % Ao root diam: 2.9 cm IVSd: 1.0 cm LVIDs: 2.8 cm EDV(Teich): 109.9 ml LVPWd: 0.96 cm ESV(Teich): 30.1 ml Ao root area: 6.6 cm2 EF(Teich): 72.6 % LA dimension: 3.7 cm Doppler Measurements & Calculations MV E max salbador: MV P1/2t max salbador: Ao V2 max: LV V1 max P.0 cm/sec 81.8 cm/sec 138.5 cm/sec 3.4 mmHg MV A max salbador: MV P1/2t: 93.6 msec Ao max PG: LV V1 max: 81.8 cm/sec 7.7 mmHg 92.5 cm/sec MV E/A: 0.99 MVA(P1/2t): 2.4 cm2 MV dec slope: 256.0 cm/sec2 MV dec time: 0.33 sec PA V2 max: TR max salbador: 104.6 cm/sec 232.1 cm/sec PA max PG: TR max P.6 mmHg 4.4 mmHg Left Ventricle The left ventricle is grossly normal size. There is borderline concentric left ventricular hypertrophy. The left ventricular ejection fraction is normal. Doppler measurements suggest pseudonormalized left ventricular relaxation, which is associated with grade II/IV or mild to moderate diastolic dysfunction. Regional wall motion abnormalities cannot be excluded due to limited visualization. Right Ventricle The right ventricle is mildly dilated. There is normal right ventricular wall thickness. The right ventricular systolic function is normal. Atria Borderline right atrial enlargement. Borderline left atrial enlargement. Interarterial septum not well visualized and not well dopplered. Cannot comment on ASD/PFO presence. Mitral Valve The mitral valve is grossly normal. There is no mitral valve stenosis. There is a trace amount of mitral regurgitation. Aortic Valve The aortic valve is grossly normal. There is no aortic valve stenosis. No aortic regurgitation is present. Tricuspid Valve The tricuspid valve is not well visualized, but is grossly normal. There is no tricuspid stenosis. There is a trace amount of tricuspid regurgitation. Tricuspid regurgitation jet envelope not well defined to measure RV systolic pressure accurately. Pulmonic Valve The pulmonic valve is not well visualized. Great Vessels The aortic root is not well visualized but is probably normal size. The inferior vena cava appeared normal and decreased > 50% with respiration (RAP 5-10 mmHg). Effusions There is no pericardial effusion. Incidental Findings No definite cardiac source of CVA/TIA noted on this particular trans- thoracic study. Consider JULIO CESAR if clinically indicated. May consider mobile cardiac telemetry monitoring (MCT) for ruling out transient AFIB. : KENNETH SAHA > Mariaelena Cobos
--- NOTE | 2017-06-10 18:59 | PDOC DISCHARGE SUMMARY ---
General - Admit/Disc Date/PCP Admission Date/Primary Care Provider: 06/09/17 15:20 LAURA GIGI Discharge Date: 06/10/17 - Discharge Diagnosis (1) TGA (transient global amnesia) Is this a current diagnosis for this admission?: Yes Summary: Presented with short term memory loss. Neurological symptoms were most likely due to transient global amnesia, which is essentially a diagnosis of exclusion. Patient does have intermittent history of headaches/migraines, which may be underlying cause. Based on studies, older age is the most reliable risk factor. Patient's neurologically at baseline at time of discharge - Lipids, HgA1c, TSH ordered and reviewed - CTH and MRI Brain negative for active CVA or other intracranial pathologies - Carotid doppler without evidence of stenosis - TTE: preserved EF, bordernline LVH, no other concerning abnormalities based with Dr. Cobos Outpatient plan - Script given for ASA 81mg, Lipitor 80mg qhs, and multivitamin - Advised to follow up with PCP for post hospitalization care - Did not make referral to neurology or cardiology, however advised patient and his that it would be reasonable to establish care if desired (2) HTN (hypertension) Is this a current diagnosis for this admission?: Yes Summary: Continue home BP medication, no changes made (3) HLD (hyperlipidemia) Is this a current diagnosis for this admission?: Yes Summary: Per above, changed statin to Lipitor from Pravachol - Additional Information Resuscitation Status: Full Code Discharge Diet: Cardiac Discharge Activity: Activity As Tolerated Prescriptions: Aspirin [Ecotrin 81 mg EC Tablet] 81 mg PO DAILY #30 tabec Atorvastatin Calcium [Lipitor 80 mg Tablet] 80 mg PO DAILY #30 tablet Multivitamin [Tab-A-Pia (Multiple Vitamin) Tablet] 1 tab PO DAILY #30 tablet Home Medications: Finasteride [Proscar 5 mg Tablet] 5 mg PO DAILY 06/09/17 Ibuprofen [Motrin 800 mg Tablet] 800 mg PO DAILY 06/09/17 Tamsulosin HCl [Flomax 0.4 mg Cap.sr] 0.8 mg PO DAILY 06/09/17 Triamterene/Hydrochlorothiazid [Triamterene-Hctz 37.5-25 mg Cp] 1 cap PO DAILY 06/09/17 Aspirin [Ecotrin 81 mg EC Tablet] 81 mg PO DAILY #30 tabec 06/10/17 Atorvastatin Calcium [Lipitor 80 mg Tablet] 80 mg PO DAILY #30 tablet 06/10/17 Multivitamin [Tab-A-Pia (Multiple Vitamin) Tablet] 1 tab PO DAILY #30 tablet History of Present Illness History of Present Illness: STEPHANIE SAINI SR is a 71 year old male with history of HTN and HLD who was in good health until this afternoon. Patient reportedly developed acute onset short -term memory loss. He began repetitive speech and asking same questions repeatedly. States that he can not remember most events over the last 24-36 hours. States that "I can not remember going to work today". Has no other focal neurological deficits, including slurred speech, numbness, focal weakness, vision changes, SHEN, [place]. States that this has never happened before. No history of DM, CVA, or cancer. He does have HTN however is compliant with his medications. He has a "strong family history of griffith. At time of my evaluation , family feels that he is marginally improving however not at baseline. Denies fevers, chills, recent illnesses, CP, abdominal pain. Currently is working and very active. Physical Exam Vital Signs: Temp Pulse Resp BP Pulse Ox 98.6 F 72 20 118/68 93 06/10/17 18:23 06/10/17 18:23 06/10/17 18:23 06/10/17 15:40 06/10/17 18:23 Intake & Output 06/09/17 06/10/17 06/11/17 06:59 06:59 06:59 Intake Total 110 240 Balance 110 240 Weight 106.4 kg General appearance: PRESENT: no acute distress, well-developed, well-nourished Mouth exam: PRESENT: moist Neck exam: ABSENT: carotid bruit, JVD Respiratory exam: PRESENT: unlabored. ABSENT: decreased breath sounds, wheezes Cardiovascular exam: PRESENT: RRR. ABSENT: systolic murmur, tachycardia GI/Abdominal exam: PRESENT: soft. ABSENT: tenderness Extremities exam: PRESENT: full ROM Neurological exam: PRESENT: alert, awake, CN II-XII grossly intact, other - Intact speech and memory Psychiatric exam: PRESENT: appropriate affect Results Laboratory Results: 06/10/17 07:20 06/10/17 07:20 06/10/17 06/10/17 06/10/17 07:20 07:20 07:20 WBC 8.4 RBC 4.99 Hgb 15.7 Hct 45.2 MCV 91 MCH 31.3 MCHC 34.6 RDW 13.0 Plt Count 308 Sodium 139.8 Potassium 4.5 Chloride 105 Carbon Dioxide 27 Anion Gap 8 BUN 22 H Creatinine 1.00 Est GFR ( Amer) > 60 Est GFR (Non-Af Amer) > 60 Glucose 108 Calcium 9.6 Triglycerides 181 H Cholesterol 187.66 LDL Cholesterol Direct 100 VLDL Cholesterol 36.2 H HDL Cholesterol 38 L TSH 2.64 06/09/17 18:50 Troponin I < 0.012 Impressions: Head CT 06/09/17 11:21 IMPRESSION: NORMAL BRAIN CT WITHOUT CONTRAST. EVIDENCE OF ACUTE STROKE: NO. Chest X-Ray 06/09/17 12:10 IMPRESSION: NO ACUTE RADIOGRAPHIC FINDING IN THE CHEST. Head MRI 06/09/17 16:37 IMPRESSION: NORMAL MRI OF THE BRAIN WITHOUT AND WITH INTRAVENOUS GADOLINIUM CONTRAST. EVIDENCE OF ACUTE STROKE: NO. Carotid Doppler Study 06/10/17 00:00 IMPRESSION: NO HEMODYNAMICALLY SIGNIFICANT STENOSIS. TTE 06/10/17: No definite cardiac source of CVA/TIA. Plan Time Spent: Greater than 30 Minutes
== END 2017-06-10 18:56 | disposition home or self-care (01) ==
LOC: ER 11:06 → EH 15:20 → INTOOBSV 15:20 → 3W 06-10 00:16
PROVIDERS: ADMIT Emergency Medicine; ATTEND Emergency Medicine
DX: G45.4 Transient global amnesia (principal); I10 Essential (primary) hypertension; E78.5 Hyperlipidemia, unspecified; Z79.899 Other long term (current) drug therapy; Z79.82 Long term (current) use of aspirin; Z82.3 Family history of stroke
CPT/HCPCS: 93005; 99285; 36415 ×2; 87086; 82553; 82962; 82550; 84443; 85025; 85027; 85610; 85730; 86140; 80048; 80053; 81001; 84484; 83036; 80061; 83880; 93306; 93880; 70553; 71045; 70450; 93010; 97163; 92523; 97167; G0378 ×2; A9577; A9270 ×9; J3490 ×2; G8978; G8979; G8980; G9168; G9169; G9170; G8987; G8988; G8989

== ENCOUNTER → 2018-06-11 | Outpatient (CLI) | payer MEDICARE ==
--- NOTE | 2018-06-13 12:26 | RADIOLOGY REPORT (SQ) ---
EXAM DESCRIPTION: PET CT WHOLE BODY COMPLETED DATE/TIME: 06/11/2018 11:34 pm REASON FOR STUDY: MULTIPLE MYELOMA C90.00 MULTIPLE MYELOMA NOT HAVING ACHIEVED REMISSION COMPARISON: PET-CT 06/22/2013 RADIONUCLIDE AND DOSE: 10.3 mCi F18 FDG The route of agent administration: Intravenous FASTING BLOOD SUGAR: 119 mg/dl CONTRAST TYPE AND DOSE: No CT contrast given. TECHNIQUE: Blood glucose level was verified. Above dose of FDG was injected intravenously. 2-D seg mented attenuation correction images were obtained through the entire body. Noncontrast CT images we re obtained for attenuation correction and fusion with emission images. CT images were performed wit hout oral or intravenous contrast and are not sensitive for parenchymal lesions. A series of overlap ping emission PET images were obtained. Images reviewed and manipulated at independent work station by the radiologist. Images stored on PACS. LIMITATIONS: None. FINDINGS: HEAD AND NECK: Along the right lobe thyroid, a 2.4 x 1.7 cm metabolically active nodule is present with SUV 5.5. This is similar in size compared to studies dating back to 2013 CHEST: This most melanoma resection along the right anterolateral chest wall. Benign postoperative c hanges are seen in the right chest wall subcutaneous fat on axial image 169, without with significant metabolic activity. No right axillary adenopathy. There is diffuse mediastinal adenopathy similar compared to 2013 as follows: Right paratracheal 1.7 x 1.2 cm node image 114, SUV 1.9 Right paratracheal 3 x 2.5 cm node image 122, SUV 3.2 Precarinal 4 x 2 cm node axial image 129, SUV 1.6 Sub- carinal 3.7 x 2 cm node axial image 139, SUV 2.3 ABDOMEN AND PELVIS: No areas of abnormal metabolic activity in the abdomen or pelvis. Expected physi ologic activity is present in the genitourinary system and bowel. LOWER EXTREMITIES: No areas of abnormal metabolic activity in the soft tissues of the lower extremiti es. BONES: No abnormal metabolic activity in the visualized skeleton. ADDITIONAL CT FINDINGS: Post splenectomy. Heavily calcified LAD. Left lower quadrant mesenteric fat necrosis, 5 cm in diameter unchanged from 2013. OTHER: Liver background activity 2.1 SUV. Blood pool background activity 1.6 SUV. IMPRESSION: No PET-CT evidence of metastatic melanoma. Metabolically active right thyroid nodule, similar in size compared to studies dating back to 2013 Postinflammatory chronic mediastinal adenopathy, unchanged from 2013 TECHNICAL DOCUMENTATION: JOB ID: [id number] [employer]- All Rights Reserved Reading location - IP/workstation name: [email or web address]
== END ==
LOC: RAD 20:22
PROVIDERS: ATTEND Internal Medicine Medical Oncology
DX: C90.00 Multiple myeloma not having achieved remission (principal)
CPT/HCPCS: 78816; A9552

== ENCOUNTER → 2018-08-06 | Outpatient (CLI) | payer MEDICARE ==
--- NOTE | 2018-08-07 09:43 | RADIOLOGY REPORT (SQ) ---
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 RADIONUCLIDE AND DOSE: 10 mCi F18 FDG The route of agent administration: Intravenous FASTING BLOOD SUGAR: 91 mg/dl CONTRAST TYPE AND DOSE: No CT contrast given. TECHNIQUE: Blood glucose level was verified. Above dose of FDG was injected intravenously. 2-D seg mented attenuation correction images were obtained through the entire body. Noncontrast CT images we re obtained for attenuation correction and fusion with emission images. CT images were performed wit hout oral or intravenous contrast and are not sensitive for parenchymal lesions. A series of overlap ping emission PET images were obtained. Images reviewed and manipulated at independent work station by the radiologist. Images stored on PACS. LIMITATIONS: None. FINDINGS: HEAD AND NECK: There are small shotty cervical lymph nodes, measuring less than 1 cm, (axi al series 3, image 70). Mean SUV value in the right lymph node measures 3.53 and in the left lymph n ode measures 2.58. Again seen is a circumscribed nodule in the right lobe of the thyroid, measuring 1.7 x 2.4 cm, unchanged. Mean SUV 3.6 to with prior value 5.5. CHEST: Again seen is mediastinal and hilar lymphadenopathy. Precarinal lymph node measures 1.9 x 3.3 cm with prior measurement 2 x 4 cm. Mean SUV 3.67 with prior value 1.6. The largest subcarinal lym ph node measures 1.4 x 3.0 cm with prior measurement 2 x 3.7 cm. Mean SUV 3.2 to with prior value 2. 3. The largest right paratracheal lymph node measures 2.1 by 3.0 cm with prior measurement 2.5 x 3 c m. Mean SUV 3.94 with prior value 3.2. Small subcentimeter highly lymph nodes with mean SUV on the right 2.55 and on the left 3.05. ABDOMEN AND PELVIS: No areas of abnormal metabolic activity in the abdomen or pelvis. Expected physi ologic activity is present in the genitourinary system and bowel. LOWER EXTREMITIES: No areas of abnormal metabolic activity in the soft tissues of the lower extremiti es. BONES: No abnormal metabolic activity in the visualized skeleton. ADDITIONAL CT FINDINGS: Coronary artery calcifications. 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 No additional significant findings on th e noncontrast CT images. OTHER: Background liver activity mean SUV 2.34. Background blood pool activity mean SUV 1.68. No ot her significant findings. IMPRESSION: 1. MILD CERVICAL ADENOPATHY WITH INCREASED ACTIVITY. THERE IS ALSO MEDIASTINAL AND HILAR ADENOPATHY WITH INCREASE IN SIZE OF THE LYMPH NODES AND INCREASE IN THE ACTIVITY DETAILED ABOVE. PREVIOUS BI OPSY DEMONSTRATED SARCOIDOSIS. MAY REPRESENT FLARE UP OF THE DISEASE. 2. STABLE HYPERMETABOLIC NODULE IN THE RIGHT LOBE OF THE THYROID. 3. NO OTHER AREAS OF ABNORMAL METABOLIC ACTIVITY. NO OTHER SIGNIFICANT FINDINGS. TECHNICAL DOCUMENTATION: JOB ID: [id number] [employer]- All Rights Reserved Reading location - IP/workstation name: [email or web address]
== END ==
LOC: RAD 16:51
PROVIDERS: ATTEND Internal Medicine Medical Oncology
DX: C90.00 Multiple myeloma not having achieved remission (principal)
CPT/HCPCS: 78816; A9552

== ENCOUNTER 2020-01-30 09:54 | Emergency (ER) | payer MEDICARE ==
--- NOTE | 2020-01-30 10:09 | ER Document Report ---
ED Medical Screen (RME) - General Chief Complaint: Shortness Of Breath Stated Complaint: SHORTNESS OF BREATH Time Seen by Provider: 01/30/20 10:07 Primary Care Provider: LAURA YU MD [Primary Care Provider] - Follow up as needed Mode of Arrival: Wheelchair Information source: Patient Notes: Patient presents 3 weeks status post left hip replacement. Patient states he has had cough for several months that worsened over the past 3 to 4 days with shortness of breath that is worse with exertion. Patient states that he does have left lower extremity swelling although he has had this since the hip replacement, and the swelling has started to improve. Patient presents with concerns about possible PE. I have greeted and performed a rapid initial assessment of this patient. A comprehensive ED assessment and evaluation of the patient, analysis of test results and completion of the medical decision making process will be conducted by additional ED providers. TRAVEL OUTSIDE OF THE [place] IN LAST 30 DAYS: No - Related Data Allergies/Adverse Reactions: rituximab [From Rituxan] Adverse Reaction (Verified 01/30/20 10:05) Past Medical History - Past Medical History Cardiac Medical History: Reports: Hx DVT - Previously on anticoagulation for provoked DVT * 2 episodes, Hx Hypercholesterolemia, Hx Hypertension Denies: Hx Coronary Artery Disease, Hx Heart Attack Pulmonary Medical History: Denies: Hx Asthma, Hx Bronchitis, Hx COPD, Hx Pneumonia, Hx Tuberculosis Neurological Medical History: Denies: Hx Cerebrovascular Accident, Hx Seizures Endocrine Medical History: Denies: Hx Diabetes Mellitus Type 1, Hx Diabetes Mellitus Type 2 Renal/ Medical History: Reports: Hx Kidney Stones. Denies: Hx Peritoneal Dialysis Musculoskeltal Medical History: Denies Hx Arthritis Past Surgical History: Reports: Hx Abdominal Surgery - Spleenectomy, hernia, Hx Orthopedic Surgery - L rotator cuff, Hx Thyroid Surgery - Biopsy, Hx Tonsillectomy - Immunizations Hx Diphtheria, Pertussis, Tetanus Vaccination: Yes Physical Exam - Vital signs Vitals: Temp Pulse Resp BP Pulse Ox 97.8 F 119 H 20 114/65 94 01/30/20 10:03 01/30/20 10:03 01/30/20 10:03 01/30/20 10:03 01/30/20 10:03 - Respiratory Respiratory status: No respiratory distress. No: Tachypnea - Cardiovascular Rhythm: Tachycardia Heart sounds: S1 appreciated, S2 appreciated Course - Vital Signs Vital signs: Temp Pulse Resp BP Pulse Ox 97.8 F 119 H 20 114/65 94 01/30/20 10:03 01/30/20 10:03 01/30/20 10:03 01/30/20 10:03 01/30/20 10:03 Doctor's Discharge - Discharge Referrals: LAURA YU MD [Primary Care Provider] - Follow up as needed
[2020-01-30] MEDS ORDERED: NORMAL SALINE 1000 ML 1,000 ML IV ONE (10:39)
[2020-01-30 10:41] LABS: HEMATOCRIT 39.7 % (37.9-51.0); HEMOGLOBIN 13.5 g/dL (13.5-17.0); MEAN CORPUSCULAR VOLUME 88 fl (80-97); PLATELET COUNT 460 10^3/uL (150-450); RED BLOOD COUNT 4.49 10^6/uL (4.35-5.55); RED CELL DISTRIBUTION WIDTH 13.5 % (11.5-14.0)
--- NOTE | 2020-01-30 10:42 | ER Document Report ---
ED Respiratory Problem - General Chief Complaint: Shortness Of Breath Stated Complaint: SHORTNESS OF BREATH Time Seen by Provider: 01/30/20 10:07 Primary Care Provider: LAURA YU MD [Primary Care Provider] - Follow up as needed Mode of Arrival: Wheelchair Notes: HPI: 74-year-old male who presents today with a mild worsening cough that he states he has had "for many weeks" also over the last 3 to 4 days. Status post left hip replacement [address] Hernandez in [place]. History of DVT. Patient is only taking 81 mg aspirin daily with leg stockings in place. Patient denies any chest pain, fevers, vomiting, abdominal pain, flank pain. No obvious swelling of the legs above baseline. No history of heart failure. ROS: See HPI All other review of systems reviewed and otherwise negative Reviewed vital signs and nursing note as charted by RN. PHYSICAL EXAM: CONSTITUTIONAL: Alert and oriented and responds appropriately to questions. Well-appearing; well-nourished HEAD: Normocephalic; atraumatic NECK: Supple without meningismus; non-tender; no cervical lymphadenopathy, no masses CARD: Tachycardic and regular; no murmurs; symmetric distal pulses RESP: Normal chest excursion without splinting or tachypnea; breath sounds clear and equal bilaterally; no wheezes, no rhonchi, no rales ABD/GI: Normal bowel sounds; non-distended; soft, non-tender; no palpable o rganomegaly or masses BACK: The back appears normal and is non-tender to palpation EXT: Excellent range of motion of the joints including the left hip. Surgical scar to the left lateral hip without any obvious surrounding erythema or induration. No obvious calf pain or leg swelling. No edema present SKIN: No acute lesions noted NEURO: CN 2-12 intact; 5/5 bilateral upper and lower extremity strength with sensation intact to light touch PSYCH: The patient's mood and manner are appropriate. Grooming and personal hygiene are appropriate. TRAVEL OUTSIDE OF THE [place] IN LAST 30 DAYS: No - Related Data Allergies/Adverse Reactions: rituximab [From Rituxan] Adverse Reaction (Verified 01/30/20 10:05) Home Medications: baby asa.... Past Medical History - General Information source: Patient - Social History Smoking Status: Never Smoker Chew tobacco use (# tins/day): No Frequency of alcohol use: None Drug Abuse: None Family History: Reviewed & Not Pertinent Patient has homicidal ideation: No - Past Medical History Cardiac Medical History: Reports: Hx DVT - Previously on anticoagulation for provoked DVT * 2 episodes, Hx Hypercholesterolemia, Hx Hypertension Denies: Hx Coronary Artery Disease, Hx Heart Attack Pulmonary Medical History: Denies: Hx Asthma, Hx Bronchitis, Hx COPD, Hx Pneumonia, Hx Tuberculosis Neurological Medical History: Denies: Hx Cerebrovascular Accident, Hx Seizures Endocrine Medical History: Denies: Hx Diabetes Mellitus Type 1, Hx Diabetes Mellitus Type 2 Renal/ Medical History: Reports: Hx Kidney Stones. Denies: Hx Peritoneal Dialysis Musculoskeletal Medical History: Denies Hx Arthritis Past Surgical History: Reports: Hx Abdominal Surgery - Spleenectomy, hernia, Hx Orthopedic Surgery - L rotator cuff, Hx Thyroid Surgery - Biopsy, Hx To nsillectomy - Immunizations Hx Diphtheria, Pertussis, Tetanus Vaccination: Yes Hx Pneumococcal Vaccination: 02/27/17 Physical Exam - Vital signs Vitals: Temp Pulse Resp BP Pulse Ox 97.8 F 119 H 20 114/65 94 01/30/20 10:03 01/30/20 10:03 01/30/20 10:03 01/30/20 10:03 01/30/20 10:03 Course - Re-evaluation Re-evalutation: 01/30/20 10:41 Given the above history and physical, stat portable x-ray was performed showing no obvious infiltrate, pneumothorax, effusions, with a narrow mediastinum and a normal heart size. Patient is tachycardic but denies any chest pain. Patient has been afebrile. Concern for DVT/PE. CTA has been ordered and bilateral Dopplers will be performed. I have provided a liter of fluid. No history of heart failure. 01/30/20 11:09 EKG shows sinus tachycardia, heart rate 115, poor wave progression, no obvious ST elevation or depression. 01/30/20 11:29 Troponin as recorded. White blood cell count as recorded. I do believe pulmonary embolism is likely. I will start the patient on a dose of Lovenox before the patient goes to CT scan. Patient still denies any chest pain. Myocarditis or other infectious process is also possible. White blood cell count as recorded. Patient supposedly has had a recent coronavirus negative test. He has been afebrile. 01/30/20 12:17 Patient appears to have bilateral lower extremity DVTs. Patient is currently at CT scan. I have already provided Lovenox and a liter of fluid. Given the tachycardia, troponin, BNP, CT and ultrasound results, the hospitalist he was uncomfortable accepting the patient secondary to the possibility of the need for catheter directed thrombolyzes. Lovenox is already been provided. Bedside spot echo does show some right heart strain. I will attempt to call transfer centers. 01/30/20 13:44 I was able to speak to the [facility] fabrication machine operator Dr. Guzman. I explained the full history and physical as well as the CT scan findings. He has graciously accepted the patient to the cardiology service. They do have interventional cardiology at this location able to perform catheter directed thrombolysis if needed. I discussed that we have already provided Lovenox. He does not believe a heparin drip is necessary at this moment despite the clot burden. We most likely can start this in 8 hours after Lovenox was provided without bolus if the patient is not at that location at that time. - Vital Signs Vital signs: Temp Pulse Resp BP Pulse Ox 97.8 F 119 H 21 H 118/70 94 01/30/20 10:03 01/30/20 10:03 01/30/20 13:00 01/30/20 12:00 01/30/20 13:00 - Laboratory Result Diagrams: 01/30/20 10:28 01/30/20 10:28 Laboratory results interpreted by me: 01/30/20 01/30/20 01/30/20 10:28 10:28 10:28 WBC 23.0 H Plt Count 460 H Seg Neuts % (Manual) 79 H Abs Neuts (Manual) 18.2 H Abs Monocytes (Manual) 1.8 H BUN 29 H Glucose 195 H Total Bilirubin 1.5 H Direct Bilirubin 0.6 H Alkaline Phosphatase 179 H NT-Pro-B Natriuret Pep 4110 H Urine Protein Urine Urobilinogen 01/30/20 12:16 WBC Plt Count Seg Neuts % (Manual) Abs Neuts (Manual) Abs Monocytes (Manual) BUN Glucose Total Bilirubin Direct Bilirubin Alkaline Phosphatase NT-Pro-B Natriuret Pep Urine Protein 30 H Urine Urobilinogen 4.0 H Critical Care Note - Critical Care Note Total time excluding time spent on procedures (mins): 35 Discharge - Discharge Clinical Impression: Right heart enlargement, Elevated troponin I level, Elevated brain natriuretic peptide (BNP) level Pulmonary embolism Qualifiers: Pulmonary embolism type: other Chronicity: acute Acute cor pulmonale presence: without acute cor pulmonale Qualified Code(s): I26.99 - Other pulmonary embolism without acute cor pulmonale Condition: Serious Disposition: [facility] Referrals: LAURA YU MD [Primary Care Provider] - Follow up as needed
[2020-01-30 10:52] LABS: INTERNATIONAL RATION (INR) 1.04; PROTHROMBIN TIME 13.8 SEC (11.4-15.4)
[2020-01-30 11:02] LABS: ABSOLUTE MONOCYTES # (MANUAL) 1.8 10^3/uL (0.1-1.4); ALKALINE PHOSPHATASE 179 U/L (38-126); ANION GAP 15 (5-19); ASPARTATE AMINO TRANSFERASE 38 U/L (17-59); BASOPHILS % (MANUAL) 0 % (0-2); BILIRUBIN,DIRECT 0.6 mg/dL (0.0-0.4); BILIRUBIN,TOTAL 1.5 mg/dL (0.2-1.3); BLOOD UREA NITROGEN 29 mg/dL (7-20); CALCIUM 9.6 mg/dL (8.4-10.2); CARBON DIOXIDE 23 mmol/L (22-30); CHLORIDE 100 mmol/L (98-107); EOSINOPHILS % (MANUAL) 0 % (0-6); GLUCOSE 195 mg/dL (75-110); LYMPHOCYTES % (MANUAL) 13 % (13-45); MONOCYTES % (MANUAL) 8 % (3-13); PLATELET COMMENT ADEQUATE; POTASSIUM 4.5 mmol/L (3.6-5.0); RBC MORPHOLOGY COMMENT NORMO-CYTIC/CHROMIC; SEGMENTED NEUTROPHILS % (MAN) 79 % (42-78); TOTAL CELLS COUNTED 100; TOTAL PROTEIN 7.5 g/dL (6.3-8.2)
--- NOTE | 2020-01-30 11:06 | RADIOLOGY REPORT (SQ) ---
EXAM DESCRIPTION: CHEST SINGLE VIEW IMAGES COMPLETED DATE/TIME: 01/30/2020 10:44 am REASON FOR STUDY: sob COMPARISON: AP view of the chest from 03/05/2019. EXAM PARAMETERS: NUMBER OF VIEWS: One view. TECHNIQUE: An AP view of the chest was obtained. RADIATION DOSE: NA LIMITATIONS: None. FINDINGS: LUNGS AND PLEURA: No consolidation, pleural effusion or pneumothorax. MEDIASTINUM AND HILAR STRUCTURES: No mediastinal or hilar contour abnormality. HEART AND VASCULAR STRUCTURES: The cardiac silhouette and pulmonary vasculature are within normal wall its. BONES: No acute findings. HARDWARE: None in the chest. OTHER: No other finding. IMPRESSION: No acute cardiopulmonary process. TECHNICAL DOCUMENTATION: JOB ID: [id number] 2010 [employer]- All Rights Reserved Reading location - IP/workstation name: [email or web address]
[2020-01-30 11:22] LABS: TROPONIN I 0.68 ng/mL
[2020-01-30] MEDS ORDERED: ENOXAPARIN SODIUM INJ 100 MG/1 ML DISP.SYRIN SUBCUT SCH (11:30)
[2020-01-30 12:32] LABS: APPEARANCE,URINE SLIGHTLY-CLOUDY; BILIRUBIN,URINE NEGATIVE (NEGATIVE); COLOR,URINE YELLOW; GLUCOSE, URINE NEGATIVE (NEGATIVE); KETONES,URINE NEGATIVE (NEGATIVE); LEUKOCYTE ESTERASE,URINE NEGATIVE (NEGATIVE); NITRITE,URINE NEGATIVE (NEGATIVE); PROTEIN,URINE 30 mg/dL (NEGATIVE); URINE SPECIFIC GRAVITY 1.016
[2020-01-30 12:33] LABS: ADD MANUAL MICROSCOPIC YES
[2020-01-30 12:41] LABS: RBC,URINE NONE SEEN /HPF
[2020-01-30 12:42] LABS: BACTERIA,URINE 3+ /HPF
--- NOTE | 2020-01-30 12:43 | RADIOLOGY REPORT (SQ) ---
EXAM DESCRIPTION: CTA CHEST IMAGES COMPLETED DATE/TIME: 01/30/2020 12:24 pm REASON FOR STUDY: 17; eval for pe COMPARISON: 2014 TECHNIQUE: CT scan of the chest performed using helical scanning technique with dynamic intravenous contrast injection. Images reviewed with lung, soft tissue and bone windows. Reconstructed coronal and sagittal MPR images reviewed. Additional 3 dimensional post-processing performed to develop Maximal Intensity Projection images (ME P). All images stored on PACS. All CT scanners at this facility use dose modulation, iterative reconstruction, and/or weight based d osing when appropriate to reduce radiation dose to as low as reasonably achievable (ALARA). [facility]: Dose Right [facility]: CareDose [facility]: Dose Right [facility]: Teradose 4D [facility]: Hotswap CONTRAST TYPE AND DOSE: contrast/concentration: Isovue 350.00 mmol/ml; Total Contrast Delivered: 68. 0 ml; Total Saline Delivered: 67.0 ml Contrast bolus adequate for pulmonary arteries and aorta. RENAL FUNCTION: BUN 29 creatinine 1.15 RADIATION DOSE: CT Rad equipment meets quality standard of care and radiation dose reduction techniq ues were employed. CTDIvol: 13.2 - 20.4 mGy. DLP: 796 mGy-cm. . LIMITATIONS: None. FINDINGS: LUNGS AND PLEURA: No masses, infiltrates, or pneumothorax. No pleural effusions or pleura l calcifications. AORTA AND GREAT VESSELS: No aneurysm. No dissection. HEART: No pericardial effusion. Moderate to marked coronary artery calcifications. PULMONARY ARTERIES: Bilateral pulmonary emboli. On the right thrombus is seen in the main pulmonary artery and in the lower lobe pulmonary arterial branches. On the right thrombus is seen in the main pulmonary artery and in the lower lobe and middle lobe branches. Mediastinal adenopathy. The larges t node is pretracheal and measures 22 mm in largest diameter. There may be some central necrosis. HILAR AND MEDIASTINAL STRUCTURES: No identified masses or abnormal nodes. HARDWARE: None in the chest. UPPER ABDOMEN: There is thickening of the right adrenal gland. THYROID AND OTHER SOFT TISSUES: There is a small low-density lesion in the right lobe of the thyroid. BONES: No acute or significant finding. 3D MIPS: Confirm above findings. OTHER: No other significant finding. IMPRESSION: 1. Bilateral pulmonary emboli as described. Moderate clot burden. 2. Mediastinal adenopathy. 3. Thickening of the right adrenal gland. 4. Small low-density lesion in the right lobe of the thyroid gland. COMMENT: Quality ID # [id number]: Final reports with documentation of one or more dose reduction techniques (e.g., Automated exposure control, adjustment of the mA and/or kV according to patient size, use of iterative reconstruction technique) TECHNICAL DOCUMENTATION: JOB ID: [id number] 2010 [employer]- All Rights Reserved Reading location - IP/workstation name: [email or web address]
--- NOTE | 2020-01-30 15:15 | RADIOLOGY REPORT (SQ) ---
EXAM DESCRIPTION: VENOUS BILATERAL LOWER IMAGES COMPLETED DATE/TIME: 01/30/2020 2:44 pm REASON FOR STUDY: 17; concern for DVT/PE; bilateral exam COMPARISON: None. TECHNIQUE: Dynamic and static denny scale and color images acquired of both lower extremity venous sy stems. Selected spectral images acquired with additional compression and augmentation maneuvers. Imag es stored on PACS. LIMITATIONS: None. FINDINGS: RIGHT LEG COMMON FEMORAL AND FEMORAL: The common femoral vein and saphenofemoral junction are noncompressible a nd there is absence of the normal phasicity and augmentation ; on the grayscale images there is echog enic thrombus within the vessels that is nonocclusive. POPLITEAL: Normal compression and augmentation. No visualized echogenic material on denny scale. No de fects on color images. CALF VESSELS: The posterior tibial vein is noncompressible and on the grayscale images there is echog enic thrombus within the vessel that is nonocclusive. GSV AND SSV: Normal compression. No visualized echogenic material on denny scale. No defects on color images. ANY DEEP VENOUS INSUFFICIENCY: No. ANY EVIDENCE OF POPLITEAL CYST: No. OTHER: No other finding. LEFT LEG COMMON FEMORAL AND FEMORAL: Normal phasicity, compression and augmentation. No visualized echogenic m aterial on denny scale. No defects on color images. POPLITEAL: The popliteal vein is noncompressible and on the grayscale images there is echogenic throm bus within the vessel that is occlusive. CALF VESSELS: The posterior tibial vein is noncompressible and on the grayscale images there is echog enic thrombus within the vessel that is occlusive. GSV AND SSV: Normal compression. No visualized echogenic material on denny scale. No defects on color images. ANY DEEP VENOUS INSUFFICIENCY: No. ANY EVIDENCE POPLITEAL CYST: No. OTHER: No other finding. IMPRESSION: 1. Acute nonocclusive thrombus within the right common femoral vein / saphenofemoral ju nction and posterior tibial vein. 2. Acute occlusive thrombus within the left popliteal and posterior tibial veins. TECHNICAL DOCUMENTATION: JOB ID: [id number] 2010 [employer]- All Rights Reserved Reading location - IP/workstation name: [email or web address]
--- NOTE | 2020-01-30 15:22 | EKG REPORT ---
SEVERITY:- BORDERLINE ECG - SINUS TACHYCARDIA BORDERLINE PROLONGED QT INTERVAL NONSPECIFIC LATERAL ST-T CHANGES : Confirmed by: Abdulkadir Hoff MD 30-Jan-2020 15:22:13
--- NOTE | 2020-01-30 17:24 | XCELERA REPORT ---
[address] [address] Transthoracic Echocardiogram Report Name: STEPHANIE SAINI SR Age: 74 yrs Gender: Male : 1945 Patient Status: Emergency Patient Location: ER Study Date: 01/30/2020 03:02 PM Height: 74 in Weight: 220 lb BSA: 2.3 m2 Procedure: A complete two-dimensional transthoracic echocardiogram was performed (2D, M-mode, spectral and color flow Doppler). Study Quality: Technically suboptimal. Reason For Study: , Eval for heart strain Ordering Physician: ALLYN WHEATLEY Performed By: Bambi August Interpretation Summary Technically suboptimal study. The left ventricle is normal in size. The left ventricle is hyperdynamic. Left ventricular systolic function is normal. The Ejection Fraction estimate is 65-70%. Diastolic dysunction is indeterminate. The left ventricular wall motion is normal. RV systolic function is mildly to moderately decreased. The free wall is hypokinetic when compared to the apex. Motion of the apex is preserved. Above findings consistent RV strain secondary to PE. IAS not well visualized. Trace MR, mild TR, mild PI. Severe pulmonary hypertension and estimated to be at least 78mmHg. MMode/2D Measurements & Calculations RVDd: 3.4 cm LVIDd: 3.8 cm FS: 34.7 % Ao root diam: 2.8 cm IVSd: 1.1 cm LVIDs: 2.5 cm EDV(Teich): 63.5 ml Ao root area: 6.3 cm2 LVPWd: 0.99 cm ESV(Teich): 22.5 ml LA dimension: 3.1 cm EF(Teich): 64.6 % Doppler Measurements & Calculations MV E max salbador: MV P1/2t max salbador: Ao V2 max: LV V1 max P.9 cm/sec 101.4 cm/sec 121.0 cm/sec 3.8 mmHg MV P1/2t: 41.5 msec Ao max P.9 mmHg LV V1 max: MVA(P1/2t): 5.3 cm2 97.7 cm/sec MV dec slope: 715.4 cm/sec2 MV dec time: 0.10 sec PA V2 max: TR max salbador: MV P1/2t-pr_phl: 57.8 cm/sec 382.5 cm/sec 41.5 msec PA max PG: TR max P.5 mmHg 1.3 mmHg Left Ventricle The left ventricle is normal in size. The left ventricle is hyperdynamic. Left ventricular systolic function is normal. The Ejection Fraction estimate is 65- 70%. Diastolic dysunction is indeterminate. The left ventricular wall motion is normal. Right Ventricle The right ventricle is moderately dilated. RV systolic function is mildly to moderately decreased. The free wall is hypokinetic when compared to the apex. Motion of the apex is preserved. Above findings consistent RV strain secondary to PE. Atria The right atrium is normal. The left atrial size is normal. IAS not well visualized. Mitral Valve The mitral valve is normal in structure and function. There is a trace amount of mitral regurgitation. Aortic Valve The aortic valve is not well visualized secondary to technical limitations. No aortic regurgitation is present. Tricuspid Valve The tricuspid valve is not well visualized secondary to technical limitations. There is a mild amount of tricuspid regurgitation. There is servere pulmonary hypertension by echo. Pulmonic Valve The pulmonic valve is not well visualized. There is a mild amount of pulmonic regurgitation. Great Vessels The inferior vena cava appeared dilated and did not change with respiration (RAP > 20 mmHg). : ALLYN WHEATLEY Antonio
[2020-01-30 17:48] VITALS: BP 105/75
== END 2020-01-30 17:48 | disposition short-term general hospital (02) ==
LOC: ER 09:54
DX: I26.99 Other pulmonary embolism without acute cor pulmonale (principal); I51.7 Cardiomegaly; R79.89 Other specified abnormal findings of blood chemistry; R06.02 Shortness of breath; R05 Cough; R00.0 Tachycardia, unspecified; Z79.82 Long term (current) use of aspirin; Z88.8 Allergy status to other drugs, medicaments and biological substances
CPT/HCPCS: 93005; 99285; 96372; 96360; 36415; 85025; 85610; 80053; 81001; 84484; 83880; 93306; 93970; 71045; 71275; 93010; J7030; J1650